=== PATIENT | male | born 1980 | race Caucasian/White ===

== ENCOUNTER 2016-05-07 22:12 | Emergency (ER) | payer OTHER ==
--- NOTE | ~2016-05-07 | CT4 ---
[facility] A Service of [facility] RADIOLOGY TEXT RESULTS PATIENT: VALERIO VILLALPANDO LOCATION: [facility] : 80 UNIT #: [id number] AGE: [address]: Moody Davila MD SEX: M ORDER DR: [id number] [facility] [address] [place], [place] [address] [id number] MR#: [id number] Acc #: [id number] NAME: VALERIO VILLALPANDO : 1980 SEX: M STUDY DATE/TIME: 05/07/2016 21:58 UNIT: [facility] ROOM: STUDY DESCRIPTION: CT Abd and Pelv Wo Cont Attending Physician: Moody Davila M.D. Ordering Physician: Moody Davila M.D. Primary Care Physician: Kulwant Landa M.D. MEDICAL IMAGING REPORT This report is preliminary unless electronic signature is present EXAM CT abdomen and pelvis, noncontrast, kidney stone protocol, 05/07/2016 HISTORY 36-year-old male in the ED complaining of new onset right flank pain beginning earlier today. TECHNIQUE CT examination of the abdomen and pelvis without oral or IV contrast using kidney stone protocol. This CT examination was performed with one or more of the following radiation dose reduction techniques: automatic exposure control, adjustment of mA and/or kV according to patient size, and iterative reconstruction. COMPARISON CT stone study 01/09/2015. FINDINGS ABDOMEN: There is a 3 mm obstructing calculus in the right upper ureter just below the UPJ causing only slight dilatation of the right renal collecting system. No additional stone material is seen within the kidneys, ureters or urinary bladder. Liver, pancreas and spleen are normal in size and appearance without contrast. Nondistended gallbladder. No bile duct dilatation. Small bowel and colon are normal in caliber and appearance, as imaged. The appendix is normal. PELVIS: Bladder, prostate and rectum are within normal limits. Limited lung base images show no active disease in the lower chest. IMPRESSION [facility] A Service of [facility] RADIOLOGY TEXT RESULTS PATIENT: VALERIO VILLALPANDO LOCATION: [facility] : 80 UNIT #: [id number] AGE: [address]: Moody Davila MD SEX: M ORDER DR: 1. Obstructing 3 mm calculus in the right upper ureter below the UPJ causing minimal right side hydronephrosis. 2. Kidneys, ureters and bladder otherwise negative. No additional stone material is seen. 3. The remainder of the examination is negative. The appendix is normal. Dictated by... Ronnell Lane M.D. THIS IS AN ELECTRONICALLY VERIFIED REPORT Ronnell Lane M.D. at 05/09/2016 9:53 PM GILMA/parul TD: 05/09/2016 07:19 JOB #: [id number] MEDICAL IMAGING REPORT COPY
[2016-05-07 22:06] LABS: BASOPHIL% 0.3 % (0-2.5); EOSINOPHIL# 0.2 X10e3 (0-0.7); EOSINOPHIL% 2.9 % (0.0-7.0); HEMOGLOBIN 15.4 gm/dL (13.0-16.0); LYMPHOCYTE# 3.5 X10e3 (1.0-3.5); LYMPHOCYTE% 42.1 % (17.0-45.0); MEAN CELL VOLUME 85.8 FL (83-96); MEAN CORPUSCULAR HEMOGLOBIN 28.7 PG (28-34); MEAN CORPUSCULAR HGB CONC 33.5 g/dL (30-36); MEAN PLATELET VOLUME 8.8 FL (6.5-11.5); MONOCYTE# 0.7 X10e3 (0-1.0); MONOCYTE% 8.9 % (3.0-12.0); NEUTROPHIL# 3.8 X10e3 (1.5-7.1); NEUTROPHIL% 45.8 % (40-75); PLATELET COUNT 187 X10e3 (140-420); RED BLOOD COUNT 5.37 X10e (3.90-5.60); RED CELL DISTRIBUTION WIDTH 13.7 % (11.0-15.5); WHITE BLOOD COUNT 8.3 X10e3 (4.0-10.5)
[2016-05-07 22:08] LABS: DIFF IND NO
[~2016-05-07 22:12] MED LIST: ALBUTEROL17 GM INH; AMOXICILLIN500 M1; ANTISEPTIC SKI237 ML TOP; ANUSOL-HC25 MG/SUPP PR; BACTRIM DS TABL1 TA1 PO; BACTROBAN22 GM TOP; BROMPHED DM; CLARITHROMYCIN500 MG PO; CLEOCIN HCL150 MG PO; DICYCLOMINE HCL20 MG PO; KEFLEX500 M1 PO; LOMOTIL TABLET1 TAB; NO MEDICATIONS; OMEPRAZOLE20 M2 PO; PREDNISONE PO; TOPROL XL PO; VOLTAREN75 MG PO; ZYRTEC10 M4
[2016-05-07 22:28] LABS: ALBUMIN SERUM 4.5 g/dL (3.5-5.0); ALKALINE PHOSPHATASE 55 U/L (32-92); ALT (SGPT) 28 U/L (10-40); AST (SGOT) 22 U/L (10-42); BILIRUBIN,TOTAL 0.2 mg/dL (0.2-2.0); BLOOD UREA NITROGEN 9 mg/dL (9-23); CALCIUM SERUM 8.8 mg/dL (8.4-10.2); CARBON DIOXIDE 25 mmol/L (22-31); CHLORIDE 103 mmol/L (100-111); CREATININE SERUM 0.9 mg/dL (0.6-1.4); GLOM FILT RATE Estimated ABOVE60 mL/min (>60); GLUCOSE FASTING 102 mg/dL (70-110); PROTEIN TOTAL SERUM 7.6 g/dL (6.0-8.3); SODIUM 136 mmol/L (135-145)
[2016-05-07 22:30] LABS: BILIRUBIN, DIRECT <0.1 mg/dL (0.0-0.2); BILIRUBIN,INDIRECT 0.1 mg/dL (0.0-0.9)
[2016-05-07 22:42] LABS: URINE SOURCE CLEAN CATCH
[2016-05-07 22:49] LABS: URINE APPEARANCE CLOUDY; URINE BILIRUBIN NEG (NEG); URINE BLOOD 3+ (NEG); URINE COLOR DK YELLOW; URINE GLUCOSE NEG (NEG); URINE KETONE NEG (NEG); URINE LEUKOCYTE ESTERASE TRACE (NEG); URINE NITRATE NEG (NEG); URINE PH 5.5 (5-8); URINE PROTEIN 1+ (NEG); URINE SPECIFIC GRAVITY 1.025 (1.003-1.035)
[2016-05-07 22:51] LABS: U HYALINE CASTS AUWI 0-2 /[LPF]; URBCS1 AUWI INNUM /[HPF] (0-2); URINE BACTERIA AUWI NEG (NEGATIVE); URINE SQUAMOUS EPITHELIAL CELL NONE SEEN /[HPF]
[2016-05-07 22:54] LABS: CULTURE INDICATED? NO
== END 2016-05-07 23:30 | disposition home or self-care (01) ==
LOC: CED 22:12
PROVIDERS: Emergency Medicine
DX: N13.2 Hydronephrosis with renal and ureteral calculous obstruction (principal); K21.9 Gastro-esophageal reflux disease without esophagitis; I10 Essential (primary) hypertension; E78.5 Hyperlipidemia, unspecified; F17.210 Nicotine dependence, cigarettes, uncomplicated
CPT/HCPCS: 36415; 74176; 80048; 80076; 81003; 85025; 96361; 96374; 96375; 99284; J1885; J2405

== ENCOUNTER 2016-09-21 22:05 | Inpatient (IN) | payer OTHER ==
--- NOTE | ~2016-09-21 | DS ---
Unit #: [id number] #: [id number] Patient: VALERIO CACERES [id number] [facility]. [place] [id number] [facility]. [place], [place] [address] [id number] MR#: [id number] NAME: VALERIO CACERES ROOM: 556 Age: 36 Sex: M Admission Date: 09/22/2016 : 1980 Discharge Date: 09/22/2016 Attending Physician: Tao Mae M.D. Primary Care Physician: Kulwant Landa M.D. DISCHARGE SUMMARY SHORT STAY SUMMARY HISTORY OF PRESENT ILLNESS This is a 36-year-old white male with a history of having hypertension. He does take Norvasc but says he has been out of it a couple weeks. Also, he has been told his cholesterol is elevated, but he cannot tolerate statin. He takes vitamin E. He is an active smoker, occasional marijuana. He came to the emergency room with chest pain. According to the patient, it started developing yesterday. He said it feels like a severe burning-type sensation in his midsternal area, radiated up to his throat. He said it persisted. He did do marijuana and does smoke but no other illicit drugs or alcohol. He was concerned it could be his heart, so he came to the emergency room for further evaluation. He denies that it radiated up to the shoulders or elbows. Denied any jaw pain or upper back pain. His cardiac enzymes remained negative x3 sets. His EKG does not show anything acute. The patient did have a heart catheterization about 4 years ago at [facility] after he had a false-positive stress test. We performed another stress test today, and it is normal. No ischemia. No focal wall motion abnormalities. He had a two-D echo, and that revealed a normal LV systolic function and no significant valvular disorders. The patient's blood pressure was 139/92 on admission. He admits to not taking his medication for a couple weeks. Will restart him back on his Norvasc. He said he could afford it if it is less than $10 a month. He said it usually was taking care of his blood pressure. Encouraged the patient to be compliant with his medications. At this point will keep him on one blood pressure medicine. Encouraged the patient healthy lifestyle alternatives, such as healthy eating and exercise and lose weight. Also encouraged the patient to completely quit smoking or drinking any alcohol. He says he does drink occasionally socially, but he does not drink heavily. Told him to quit smoking; smoking cessation information provided to the patient. Patient will also be encouraged to take a Prilosec when he has the midsternal sensation, like a burning, which did appear to sound more like some type of GERD or indigestion. The patient will be discharged home today and instructed to follow up with Dr. Landa in a couple weeks. He said he used to see her, but he really wants to keep himself healthy. He stated he would try to be compliant with his blood pressure medicine and followups. HOME MEDICATIONS 1. Norvasc 10 mg p.o. daily. 2. Fish oil daily. Unit #: [id number] #: [id number] Patient: VALERIO CACERES ALLERGIES No known drug allergies. SOCIAL HISTORY The patient lives with his girlfriend. 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 He smokes about a pack of cigarettes a day. Drinks occasional beer socially. He smokes occasional marijuana. No other illicit drug abuse. FAMILY HISTORY He reports his father of a massive heart attack at the age of 57. His mother was in generally in good health. REVIEW OF SYSTEMS HEENT: No visual or hearing changes. No lymphadenopathy, thyromegaly. No difficulty swallowing. CARDIOVASCULAR: Chest pain present. Denies palpitations. Some slightly increased lower extremity edema. PULMONARY: Denies shortness of breath except with some exertion. Denies paroxysmal nocturnal dyspnea or orthopnea. GI: Denies nausea, vomiting, diarrhea or abdominal pain. NEUROLOGIC: No focal weakness. PHYSICAL EXAMINATION (on day of discharge) GENERAL: Mr. Caceres is a 36-year-old white male. No acute respiratory distress. He is awake, alert and oriented. VITAL SIGNS: On exam, his blood pressure was 115/80, respirations 18, heart rate 70, temperature 97.9, O2 sats 97% on room air. NECK: Trachea is midline. No thyromegaly or lymphadenopathy. Normal carotid upstrokes. No jugular venous distention. HEART: S1, S2, regular rate and rhythm. No clicks, murmurs, or rubs. LUNGS: Diminished; otherwise, clear. ABDOMEN: Obese, soft, nontender. EXTREMITIES: Pedal pulses are palpable. He has 1+ pedal edema. DIAGNOSTIC STUDIES LABORATORY DIAGNOSTIC DATA: Glucose is 95, BUN 11, creatinine 0.9, eGFR 109.5, sodium 137, potassium 3.6, chloride 105, CO2 24, calcium 8.6, total protein 6.8, albumin 4.1, bili total 0.2, AST 21, ALT 31 and alkaline phosphatase 55. WBC 8.3, hemoglobin 14.4, hematocrit 43.1, platelets 177. BNP is less than 5. Initial cardiac enzymes - CK-MB less than 1, troponin less than 0.05; CK-MB less than 1, troponin less than 0.05, and latest cardiac enzymes - Troponin less than 0.03. His cholesterol is 163, triglycerides 114, LDL 112, and his HDL is 28. Alcohol level less than 5. D-dimer 262, INR 1. Urine tox screen positive for marijuana. IMAGING: Chest x-ray shows stable cardiac enlargement; otherwise, nothing acute. Lungs are clear. CARDIOVASCULAR: EKG shows normal sinus rhythm. It does have a Q wave in V1, poor R wave progression, T wave inversion in lead III. IMPRESSION 1. Chest pain, questionable etiology. 2. Hypertension, noncompliance. 3. Hyperlipidemia, intolerant to statins. 4. Active nicotine abuse. 5. Occasional marijuana use. Unit #: [id number] #: [id number] Patient: VALERIO CACERES 6. Strong family history of coronary artery disease. 7. Cardiac cath about 4 years ago at [facility]. Told was normal. PLAN 1. Patient had negative cardiac enzymes, and his EKG did not show anything acute. Exercise Cardiolite stress test was performed, and it did not show any focal wall motion abnormality or ischemia. His ejection fraction was normal. Patient will be discharged home today and instructed to follow up with Dr. Landa in about 2 weeks. 2. Restarted the patient back on his Norvasc. He said he had not been taking it for a couple weeks due to cost. I assured the patient that this is around [facility] He said he would be compliant to filling it and taking his medication. Also continued the patient on fish oil. He said that he is intolerant to statins, but he will follow up with Dr. Landa about his hyperlipidemia. 3. Encouraged the patient to completely quit smoking. Smoking cessation information provided to the patient. Also encouraged to quit using marijuana and drinking any alcohol. 4. Instructed the patient to take a Prilosec 20 mg daily for heartburn and reflux. 5. On exam, there are no signs or symptoms of acute congestive heart failure. 6. The patient will follow up with Dr. Landa in about 2 weeks. Again, encourage compliance with his medication, especially his Norvasc for his hypertension. Dictated by... Patricia Carmona A.P.R.N. for Lynn Costa/valerie TD: 09/22/2016 15:53 JOB #: [id number] DISCHARGE SUMMARY Page 1 of 1 X Patricia Carmona APRN X DISCHARGE SUMMARY
--- NOTE | ~2016-09-21 | EKG ---
PATIENT: VALERIO VILLALPANDO UNIT #: [id number] Ventricular Rate: 68 BPM Atrial Rate: 68 BPM P-R Interval: 182 ms QRS Duration: 106 ms Q-T Interval: 392 ms QTC Calculation(Bezet): 416 ms P [place]: 7 degrees Calculated R [place]: 28 degrees Calculated T [place]: 2 degrees Diagnosis Line: Normal sinus rhythm Diagnosis Line: Normal ECG Diagnosis Line: When compared with ECG of 22-FEB-2015 11:30, Diagnosis Line: Inverted T waves have replaced nonspecific T wave Diagnosis Line: abnormality in Inferior leads Diagnosis Line: Confirmed by ISABEL MIRZA MD ([id number]) on Diagnosis Line: 09/23/2016 7:14:45 AM INTERPRETING MD: HERMES HUMMEL
--- NOTE | ~2016-09-21 | CR72 ---
[facility] A Service of [facility] RADIOLOGY TEXT RESULTS PATIENT: VALERIO VILLALPANDO LOCATION: [facility] : 80 UNIT #: [id number] AGE: [address]: Tao Mae MD SEX: M ORDER DR: [id number] [facility] [address] [place], [place] [address] [id number] E MR#: [id number] Acc #: [id number] NAME: VALERIO VILLALPANDO : 1980 SEX: M STUDY DATE/TIME: 09/21/2016 23:52 UNIT: [facility] ROOM: STUDY DESCRIPTION: CR Chest Single View Portable Attending Physician: Alyx Daniel M.D. Ordering Physician: Alyx Daniel M.D. Primary Care Physician: Kulwant Landa M.D. MEDICAL IMAGING REPORT This report is preliminary unless electronic signature is present EXAM AP portable chest DATE: 09/21/2016 HISTORY Midsternal chest pain with shortness of breath tonight. COMPARISON AP portable chest 02/22/2015. FINDINGS No acute airspace disease. Borderline cardiac enlargement appears stable. No pleural effusion or pneumothorax is identified. No acute osseous abnormality. IMPRESSION Stable borderline cardiac enlargement. No acute chest findings. Dictated by... Richelle Almanzar M.D. THIS IS AN ELECTRONICALLY VERIFIED REPORT Richelle Almanzar M.D. at 09/22/2016 9:49 PM KIKE/lex TD: 09/22/2016 01:51 JOB #: [id number] MEDICAL IMAGING REPORT Page 1 of 1 COPY
--- NOTE | ~2016-09-21 | ST ---
Unit #: [id number] #: [id number] Patient: VALERIO VILLALPANDO [id number] [address] [address] [id number] I MR#: [id number] NAME: VALERIO VILLALPANDO : 1980 SEX: M STUDY DATE/TIME: 09/22/2016 UNIT: C5B ROOM: 556 STUDY DESCRIPTION: Exercise stress test Attending Physician: Tao Mae M.D. Primary Care Physician: Kulwant Landa M.D. CARDIOLOGY REPORT PROCEDURE PERFORMED Exercise Cardiolite stress test. PROCEDURE BASELINE EKG: Normal sinus rhythm with ventricular rate 66 beats per minute, T waves in V1, poor R wave progression. The patient walked on the treadmill for 8 minutes and 15 seconds utilizing the Jevon protocol, achieving a workload of 10.1 METS. He achieved 86% of the maximum target heart rate at 160 beats per minute with a maximum blood pressure response of 158/80 mmHg. EKG during the test was equivocal to baseline. No acute ischemic changes. The patient had no complaints of chest pain, palpitations or dizziness. Had increased shortness of breath and fatigue, which resolved in the recovery phase. IMPRESSION 1. Functional class 3 with a workload of 10.1 METS. 2. Patient walked for 8 minutes and 15 seconds achieving 86% of maximum target heart rate at 160 beats per minute with a maximum blood pressure response of 158/80 mmHg. 3. The patient had no complaints of chest pain, palpitations or dizziness. Had increased shortness of breath and fatigue, which resolved in recovery phase. 4. EKG during the test was equivocal to baseline. 5. Cardiolite was injected at maximum target heart rate. Radionuclide test pending. Please correlate with nuclear images. Dictated by... Patricia Carmona A.P.R.NRobert for Lynn Costa/valerie TD: 09/22/2016 15:30 JOB #: [id number] Unit #: [id number] #: [id number] Patient: VALERIO VILLALPANDO CARDIOLOGY REPORT Page 1 of 1 X Patricia Carmona APRN CARDIOLOGY REPORT
--- NOTE | ~2016-09-21 | TH ---
Unit #: [id number] #: [id number] Patient: VALERIO VILLALPANDO [id number] [place], [place] [address] [id number] I MR#: [id number] NAME: VALERIO VILLALPANDO : 1980 SEX: M STUDY DATE/TIME: 09/22/2016 UNIT: C5B ROOM: 556 STUDY DESCRIPTION: Exercise stress test - Nuclear Attending Physician: Tao Mae M.D. Primary Care Physician: Kulwant Landa M.D. CARDIOLOGY REPORT PROCEDURE PERFORMED Exercise Cardiolite stress test - Nuclear portion. PROCEDURE Using technetium 99m-labeled Cardiolite, rest and stress SPECT images were obtained. Multiple SPECT images were obtained in various views, including horizontal and vertical long axis and short axis views of the left ventricle. Images were obtained by gated SPECT method. The patient was administered 11.38 mCi of Cardiolite at rest. The patient was administered 33.6 mCi of Cardiolite at peak exercise. Total exercise time is 8 minutes and 15 seconds. On the stress images, there is normal perfusion noted. The rest images show normal perfusion. Comparing the rest and stress images, there is no stress-induced ischemia noted. The left ventricular ejection fraction is calculated to be 55%. There is no focal wall motion abnormality seen. CONCLUSION 1. No stress-induced ischemia noted. 2. The left ventricular ejection fraction is calculated to be 55%. 3. There is no focal wall motion abnormality seen. 4. Normal exercise Cardiolite stress test. 5. Technically limited study. Clinical correlation is requested. Dictated by... Lynn Costa TD: 09/22/2016 15:37 JOB #: [id number] CARDIOLOGY REPORT Page 1 of 1 X Charlette Oconnell MD <ELECTRONICALLY SIGNED> 11/10/16 1524 CARDIOLOGY REPORT
--- NOTE | ~2016-09-21 | EKG ---
PATIENT: VALERIO VILLALPANDO UNIT #: [id number] Ventricular Rate: 86 BPM Atrial Rate: 86 BPM P-R Interval: 166 ms QRS Duration: 84 ms Q-T Interval: 342 ms QTC Calculation(Bezet): 409 ms P [place]: 30 degrees Calculated R [place]: 33 degrees Calculated T [place]: 35 degrees Diagnosis Line: Normal sinus rhythm Diagnosis Line: Normal ECG Diagnosis Line: When compared with ECG of 22-FEB-2015 11:30, Diagnosis Line: No significant change was found Diagnosis Line: Confirmed by ISABEL MIRZA MD ([id number]) on Diagnosis Line: 09/23/2016 7:14:23 AM INTERPRETING MD: HERMES HUMMEL
[2016-09-22 00:19] LABS: BASOPHIL% 0.2 % (0-2.5); EOSINOPHIL# 0.2 X10e3 (0-0.7); EOSINOPHIL% 2.3 % (0.0-7.0); HEMATOCRIT 43.1 % (38.0-50.0); HEMOGLOBIN 14.4 gm/dL (13.0-16.0); LYMPHOCYTE# 3.4 X10e3 (1.0-3.5); LYMPHOCYTE% 40.4 % (17.0-45.0); MEAN CELL VOLUME 87.6 FL (83-96); MEAN CORPUSCULAR HEMOGLOBIN 29.3 PG (28-34); MEAN CORPUSCULAR HGB CONC 33.5 g/dL (30-36); MEAN PLATELET VOLUME 8.6 FL (6.5-11.5); MONOCYTE# 0.8 X10e3 (0-1.0); MONOCYTE% 9.2 % (3.0-12.0); NEUTROPHIL% 47.9 % (40-75); PLATELET COUNT 177 X10e3 (140-420); RED BLOOD COUNT 4.92 X10e (3.90-5.60); RED CELL DISTRIBUTION WIDTH 14.2 % (11.0-15.5); WHITE BLOOD COUNT 8.3 X10e3 (4.0-10.5)
[2016-09-22 00:23] LABS: DIFF IND NO
[2016-09-22 00:26] LABS: POC - CKMB <1.0 ng/mL (0.0-7.9); POC - TROPONIN <0.05 ng/mL (<=0.05)
[2016-09-22 00:32] LABS: PARTIAL THROMBOPLASTIN TIME 27.1 SECONDS (23.5-31.3); PROTHROMBIN TIME (PATIENT) 10.6 SECONDS (10.0-11.7)
[2016-09-22 00:41] LABS: ALBUMIN SERUM 4.1 g/dL (3.5-5.0); ALKALINE PHOSPHATASE 55 U/L (32-92); ALT (SGPT) 31 U/L (10-40); AST (SGOT) 21 U/L (10-42); BILIRUBIN, DIRECT 0.1 mg/dL (0.0-0.2); BILIRUBIN,INDIRECT 0.1 mg/dL (0.0-0.9); BILIRUBIN,TOTAL 0.2 mg/dL (0.2-2.0); BLOOD UREA NITROGEN 11 mg/dL (9-23); BUN/CREATININE RATIO 12.22; CALCIUM SERUM 8.6 mg/dL (8.4-10.2); CARBON DIOXIDE 24 mmol/L (22-31); CHLORIDE 105 mmol/L (100-111); CREATININE SERUM 0.9 mg/dL (0.6-1.4); GLOM FILT RATE Estimated 109.5 mL/min (>60); GLUCOSE FASTING 95 mg/dL (70-110); LIPASE 71 U/L (22-51); POTASSIUM 3.6 mmol/L (3.5-5.1); PROTEIN TOTAL SERUM 6.8 g/dL (6.0-8.3); SODIUM 137 mmol/L (135-145)
[2016-09-22 00:42] LABS: ALCOHOL BLOOD <5 mg/dL (0)
[2016-09-22 00:56] LABS: AMPHETAMINE NEG (NEG); BARBITURATES NEG (NEG); BENZODIAZEPINES NEG (NEG); COCAINE NEG (NEG); MARIJUANA POS (NEG); OPIATES NEG (NEG); TRICYCLIC ANTIDEPRESSANTS NEG (NEG); U METHADONE NEG (NEG)
[2016-09-22] MEDS ORDERED: NORVASC10 MG PO (01:20)
[2016-09-22 02:06] LABS: POC - CKMB <1.0 ng/mL (0.0-7.9); POC - TROPONIN <0.05 ng/mL (<=0.05)
[2016-09-22 14:54] LABS: CHOLESTEROL 163 mg/dL (0-200); HDL CHOLESTEROL 28 mg/dL (29-75); LDL CHOLESTEROL 112 mg/dL (-130); LDL/HDL RATIO 4 RATIO (0-4); TRIGLYCERIDES 114 mg/dL (10-160)
[2016-09-22] MEDS ORDERED: PRILOSEC PO (15:31)
== END 2016-09-22 16:03 | disposition home or self-care (01) | DRG 313 ==
LOC: CED 22:05 → CEDOF 09-22 01:30 → CED 09-22 02:22 → C5B 09-22 04:14 → CEDOF 09-22 04:14 → C5B 09-22 16:03
PROVIDERS: Emergency Medicine; Internal Medicine Cardiovascular Disease
PROC: B24BYZZ Ultrasonography of Heart with Aorta using Other Contrast (ICD-10-PCS; principal; 2016-09-22)
DX: R07.9 Chest pain, unspecified (principal); I10 Essential (primary) hypertension; F17.210 Nicotine dependence, cigarettes, uncomplicated; Z71.6 Tobacco abuse counseling; E78.5 Hyperlipidemia, unspecified; F15.90 Other stimulant use, unspecified, uncomplicated; Z82.49 Family history of ischemic heart disease and other diseases of the circulatory system
CPT/HCPCS: 36415; 71010; 78452; 80048; 80061; 80076; 80307; 82553; 83690; 83880; 84484; 85025; 85379; 85610; 85730; 93005; 93017; 93306; 99285; A9500; G0480

== ENCOUNTER 2016-10-10 17:59 | Emergency (ER) | payer OTHER ==
[~2016-10-10] VITALS: Ht 190.5 cm; Wt 113.4 kg
--- NOTE | ~2016-10-10 | CT4 ---
[facility] A Service [facility] RADIOLOGY TEXT RESULTS PATIENT: VALERIO VILLALPANDO LOCATION: [facility] : 80 UNIT #: [id number] AGE: [address]: Christy Anders MD SEX: M ORDER DR: [id number] [facility] [address] [place], [place] [address] [id number] E MR#: [id number] Acc #: [id number] NAME: VALERIO VILLALPANDO : 1980 SEX: M STUDY DATE/TIME: 10/10/2016 21:26 UNIT: [facility] ROOM: STUDY DESCRIPTION: CT Abd and Pelv Wo Cont Attending Physician: Christy Anders M.D. Ordering Physician: Christy Anders M.D. Primary Care Physician: Kulwant aLnda M.D. MEDICAL IMAGING REPORT This report is preliminary unless electronic signature is present EXAM CT scan of the abdomen and pelvis without contrast, 10/10/2016. HISTORY Right lower quadrant abdominal pain for 1 week. History of kidney stones. Evaluate for obstructing renal calculus. TECHNIQUE Spiral CT was performed through the abdomen and pelvis without oral or intravenous contrast administration using renal stone protocol. This CT exam was performed with one or more of the following radiation dose reduction techniques: automatic exposure control, adjustment of mA and/or kV according to patient size, and iterative reconstruction. FINDINGS ABDOMEN: There is no obstructing renal or ureteral calculus. The kidneys are normal bilaterally. The liver, spleen, pancreas, gallbladder and biliary tree and adrenal glands are normal. PELVIS FINDINGS: The gut, mesenteric and sheryl structures are normal. There is no free fluid in the abdomen or pelvis. The lung bases are normal. IMPRESSION No obstructing renal or ureteral calculus. Dictated by... Kyler Claudio M.D. THIS IS AN ELECTRONICALLY VERIFIED REPORT Kyler Claudio M.D. at 10/11/2016 2:17 PM KRT/pc [facility] A Service [facility] RADIOLOGY TEXT RESULTS PATIENT: AVLERIO VILLALPANDO LOCATION: [facility] #: [id number] : [birth year] UNIT #: [id number] AGE: [address]: Christy Anders MD SEX: M ORDER DR: TD: 10/11/2016 10:49 JOB #: [id number] MEDICAL IMAGING REPORT Page 1 of 1 COPY
[~2016-10-10 17:59] MED LIST changes: +NORVASC10 MG PO; +PRILOSEC PO
[2016-10-10 18:25] LABS: URINE SOURCE CLEAN CATCH
[2016-10-10 18:58] LABS: BASOPHIL% 0.4 % (0-2.5); EOSINOPHIL# 0.1 X10e3 (0-0.7); EOSINOPHIL% 1.7 % (0.0-7.0); HEMATOCRIT 47.1 % (38.0-50.0); HEMOGLOBIN 15.9 gm/dL (13.0-16.0); LYMPHOCYTE# 2.4 X10e3 (1.0-3.5); LYMPHOCYTE% 32.3 % (17.0-45.0); MEAN CELL VOLUME 87.4 FL (83-96); MEAN CORPUSCULAR HEMOGLOBIN 29.5 PG (28-34); MEAN CORPUSCULAR HGB CONC 33.7 g/dL (30-36); MEAN PLATELET VOLUME 8.7 FL (6.5-11.5); MONOCYTE# 0.5 X10e3 (0-1.0); NEUTROPHIL# 4.3 X10e3 (1.5-7.1); NEUTROPHIL% 58.6 % (40-75); PLATELET COUNT 196 X10e3 (140-420); RED BLOOD COUNT 5.39 X10e (3.90-5.60); RED CELL DISTRIBUTION WIDTH 14.1 % (11.0-15.5); WHITE BLOOD COUNT 7.3 X10e3 (4.0-10.5)
[2016-10-10 19:00] LABS: DIFF IND NO
[2016-10-10 19:06] LABS: URINE APPEARANCE CLEAR; URINE BLOOD NEG (NEG); URINE COLOR YELLOW; URINE GLUCOSE NORM (NORM); URINE KETONE NEG (NEG); URINE LEUKOCYTE ESTERASE NEG (NEG); URINE NITRATE NEG (NEG); URINE PROTEIN NEG (NEG); URINE UROBILINOGEN NORM (NORM)
[2016-10-10 19:08] LABS: URINE BILIRUBIN POS (NEG)
[2016-10-10 19:16] LABS: URINE MUCUS PRESENT
[2016-10-10 19:17] LABS: CULTURE INDICATED? NO; URINE SQUAMOUS EPITHELIAL CELL FEW /[HPF]; UWBCS1 AUWI 0-2 (0-5)
[2016-10-10 19:24] LABS: ALBUMIN SERUM 4.5 g/dL (3.5-5.0); BILIRUBIN, DIRECT 0.1 mg/dL (0.0-0.2); BILIRUBIN,INDIRECT 0.4 mg/dL (0.0-0.9); BILIRUBIN,TOTAL 0.5 mg/dL (0.2-2.0); CALCIUM SERUM 9.7 mg/dL (8.4-10.2); GLOM FILT RATE Estimated 96.4 mL/min (>60); POTASSIUM 4.3 mmol/L (3.5-5.1); PROTEIN TOTAL SERUM 7.8 g/dL (6.0-8.3)
== END 2016-10-10 23:10 | disposition home or self-care (01) ==
LOC: CED 17:59
PROVIDERS: Emergency Medicine
DX: R10.9 Unspecified abdominal pain (principal)
CPT/HCPCS: 36415; 74176; 80048; 80076; 81003; 83690; 85025; 99284